=== PATIENT | male | born 1990 | race Caucasian/White ===

== ENCOUNTER 2017-09-16 19:02 | Emergency (ER) | payer MEDICAID ==
--- NOTE | 2017-09-16 19:10 | EDPHY ---
H & P - Personal History Tetanus Vaccine Date: < 10 years - Medical/Surgical History Hx Asthma: No Hx Chronic Respiratory Disease: No Hx Diabetes: No Hx Cardiac Disease: No Hx Renal Disease: No Hx Cirrhosis: No Hx Alcoholism: No Hx HIV/AIDS: No Hx Splenectomy or Spleen Trauma: No Other PMH: Endoscope 2012 - Social History Smoking Status: Current some day smoker Time Seen by Provider: 09/16/17 19:05 HPI/ROS: CHIEF COMPLAINT: Heroin use HISTORY OF PRESENT ILLNESS: 27-year-old male was a "Stat Team Alert" intra Hospital. Hospital in the ER staff responded to reports of a male on the floor of the bathroom of the hospital who admitted to using IV heroin use. He is in the hospital visiting his girlfriend. He admits to IV heroin use. He is not receive Narcan before arrival to the emergency department in a wheelchair from the hospital. He denies suicidal or homicidal ideation. Denies alcohol use. Pulse oxygenation of 68% on room air upon arrival. REVIEW OF SYSTEMS: A ten point review of systems was performed and is negative with the exception of the items mentioned in the HPI PAST MEDICAL & SURGICAL HISTORY: History of heroin use SOCIAL HISTORY:History of heroin use needle found at side PHYSICAL EXAM (Prior to examination, patient consented to physical exam, hands were washed and my usual and customary physical exam procedures followed) 1) GENERAL: Well-developed, well-nourished, alert and oriented. Appears to be in no acute distress. Speaking full sentences 2) HEAD: Normocephalic, atraumatic 3) HEENT: Pupils equal, round, reactive to light bilaterally. Sclera anicteric. 4) NECK: Full range of motion, no meningeal signs. 5) LUNGS: Clear auscultation bilaterally, no wheezes, no rhonchi, no retractions. 6) HEART: Regular rate and rhythm, no murmur, no heave, no gallop. 7) ABDOMEN: No guarding, no rebound, no focal tenderness, 8) MUSCULOSKELETAL: Moving all extremities, no focal areas of tenderness, no obvious trauma. No peripheral edema or discoloration. 9) BACK: No CVA tenderness, no midline vertebral tenderness, no fluctuance, no step-off, no obvious trauma, no visual or palpable abnormality. 10) SKIN: No rash, no petechiae. 11) Psychiatric: Patient is oriented X 3, there is no agitation. DIFFERENTIAL DIAGNOSIS: In no particular include but limited to polysubstance abuse, heroin overdose, pulmonary edema, pneumothorax (Chaparro Fisher) Constitutional: Initial Vital Signs Temperature (C) 36.9 C 09/16/17 19:07 Heart Rate 125 H 09/16/17 19:07 Respiratory Rate 20 09/16/17 19:07 Blood Pressure 162/113 H 09/16/17 19:07 O2 Sat (%) 68 L 09/16/17 19:07 O2 Delivery Mode Room Air O2 (L/minute) 2 Allergies/Adverse Reactions: amoxicillin [Amoxicillin] Allergy (Verified 09/16/17 19:07) Hives erythromycin lactobionate [From Erythrocin] Allergy (Verified 09/16/17 19:07) Hives Home Medications: Medication Instructions Recorded NK [No Known Home Meds] 09/16/17 Medical Decision Making - Diagnostics Imaging Results: Imaging Impressions Chest X-Ray 09/16/17 19:10 Impression: Negative frontal chest radiograph. Images reviewed myself (Chaparro Fisher) ED Course/Re-evaluation: 7:09 p.m.: Discussed case with secondary supervising physician Dr. Roth in the ER after evaluating the patient 8:02 p.m.: Re-evaluation, awake alert oriented person place time events. Will continue to observe in the ER for period of time. 8:20 p.m.: Re-evaluation, awake alert oriented person place time events, maintaining saturations of 96-98% on room air, breathing comfortably. 9 p.m.: Re-evaluation, he is been consistently maintaining saturations of 96-98 % on room air, breathing comfortably, no signs of respiratory distress. Think the patient can be discharged. He has not been given Narcan while in the emergency department or pre emergency department. Recommend cessation from heroin use. Have offered sobriety resources including addiction recovery Center which he declines. (Chaparro Fisher) I did not see this patient while he was in the emergency department. However his care was discussed with the PA while the patient was in the department. I agree with treatment plan and management. I am the secondary supervising physician (Evelio Roth) - Data Points Laboratory Results: Laboratory Results 09/16/17 19:10 09/16/17 19:10 09/16/17 09/16/17 09/16/17 19:10 19:10 19:10 WBC REJ RBC TNP Hgb TNP Hct TNP MCV TNP MCH TNP MCHC TNP RDW TNP Plt Count TNP MPV TNP Neut % (Auto) TNP Lymph % (Auto) TNP [place] % (Auto) TNP Eos % (Auto) TNP Baso % (Auto) TNP Nucleat RBC Rel Count TNP Absolute Neuts (auto) TNP Absolute Lymphs (auto) TNP Absolute Monos (auto) TNP Absolute Eos (auto) TNP Absolute Basos (auto) TNP Absolute Nucleated RBC TNP Immature Gran % TNP Immature Gran # TNP Sodium 142 mEq/L mEq/L (134-144) Potassium 3.6 mEq/L mEq/L (3.5-5.2) Chloride 99 mEq/L mEq/L (97-110) Carbon Dioxide 27 mEq/l mEq/l (22-31) Anion Gap 16 mEq/L mEq/L (8-16) BUN 9 mg/dL mg/dL (7-23) Creatinine 1.0 mg/dL mg/dL (0.7-1.3) Estimated GFR > 60 Glucose 206 mg/dL H mg/dL (70-100) Calcium 9.2 mg/dL mg/dL (8.5-10.4) Specimen Hemolysis Cancelled Ethyl Alcohol Cancelled < 10 mg/dL mg/dL (0-10) Departure - Departure Disposition: Home, Routine, Self-Care Clinical Impression: Heroin use Condition: Good Instructions: Narcotic Abuse (ED) Additional Instructions: Please consider long-term sobriety from heroin or other opiates. Referrals: [facility] [Outside] - As per Instructions
[2017-09-16 19:42] LABS: ANION GAP 16 mEq/L (8-16); CALCIUM 9.2 mg/dL (8.5-10.4); CARBON DIOXIDE 27 mEq/l (22-31); CHLORIDE 99 mEq/L (97-110); ETHANOL SERUM < 10 mg/dL (0-10); GLOMERULAR FILTRATION RATE > 60; GLUCOSE 206 mg/dL (70-100); POTASSIUM 3.6 mEq/L (3.5-5.2); SODIUM 142 mEq/L (134-144)
[2017-09-16 20:37] VITALS: RESP 16
[2017-09-16 21:17] VITALS: BP 121/69; PULSE 65; TEMP 97.9; O2SAT 97
== END 2017-09-16 21:17 | disposition home or self-care (01) ==
DX: F11.20 Opioid dependence, uncomplicated (principal); F17.200 Nicotine dependence, unspecified, uncomplicated
CPT/HCPCS: G0480

== ENCOUNTER 2018-01-02 08:47 | Inpatient (IN) | payer MEDICAID ==
[2018-01-02] MEDS ORDERED: NS 1,000 ML IV ONE ×2 (08:48→08:56)
[2018-01-02] MEDS ORDERED: ETOMIDATE 40 MG/20 ML INJ IVP ONE (08:52)
[2018-01-02] MEDS ORDERED: SUCCINYLCHOLINE CHLORIDE 200 MG/10 ML VIAL IVP ONE (08:53)
[2018-01-02] MEDS ORDERED: PROPOFOL/EMULSION 1,000 MG/100 ML BOTTLE IV ONE (08:54)
[2018-01-02] MEDS ORDERED: PROPOFOL/EMULSION 100 ML IV SCH ×2 (08:57→09:00)
--- NOTE | 2018-01-02 08:59 | CPEKG ---
Heart Rate: 103 RR Interval: 583 P-R Interval: 120 QRSD Interval: 80 QT Interval: 356 QTC Interval: 466 P Doyle: 70 QRS Doyle: 50 T Wave Doyle: 74 EKG Severity - OTHERWISE NORMAL ECG - EKG Impression: SINUS TACHYCARDIA Electronically Signed By: Evelio Roth 02-Jan-2018 16:02:45
[2018-01-02] MEDS ORDERED: POTASSIUM Cl (KCl) 20 MEQ in 1/2 NS 1,000 ML IV SCH (09:00)
[2018-01-02] MEDS ORDERED: D50W 25 GM/50 ML SYR IVP ONE ×4 (09:00→09:02)
--- NOTE | 2018-01-02 09:05 | EDPHY ---
H & P Time Seen by Provider: 01/02/18 08:55 HPI/ROS: Chief complaint. Unresponsive HPI. Patient is 27-year-old male here by EMS. Apparent history of substance abuse. Was agitated last night found unresponsive and not breathing by father this morning. Apparently the the patient recently purchased benzodiazepines on the Internet. He does have a long history of IV drug abuse specifically heroin. Unknown whether the patient has been sick or the last day circumstances. Patient had a nasal trumpet placed per EMS. They were unable to obtain blood for glucose testing. Given Narcan without affect. ROS--unable as the patient is unresponsive Past Medical/Surgical History: Other than history of IVDA per EMS no other known past medical history Social History: Unknown Smoking Status: Current some day smoker Physical Exam: General Appearance: Unresponsive male with Ambu bag in place. Tachycardia at 133. Stable blood pressure Eyes: Pupils are dilated and minimally responsive. They are equal.. ENT, Mouth: Mucous membranes are moist. Respiratory: Good bilateral breath sounds with Ambu bag Cardiovascular: Regular rate and rhythm tachycardia Gastrointestinal: Abdomen is soft and without evidence of trauma Neurological: Unresponsive to verbal stimuli. Really no response to painful stimuli. GCS 3 Skin: Extensive track kasper on the left forearm Musculoskeletal: Neck is supple Extremities does not move extremities Psychiatric: Unresponsive Constitutional: Initial Vital Signs Temperature (C) 37 C 01/02/18 09:24 Heart Rate 120 H 01/02/18 09:24 Respiratory Rate 30 H 01/02/18 09:24 Blood Pressure 150/77 H 01/02/18 09:24 O2 Sat (%) 98 01/02/18 09:24 Allergies/Adverse Reactions: amoxicillin [Amoxicillin] Allergy (Verified 09/16/17 19:07) Hives erythromycin lactobionate [From Erythrocin] Allergy (Verified 09/16/17 19:07) Hives Home Medications: Medication Instructions Recorded NK [No Known Home Meds] 09/16/17 Medical Decision Making - Diagnostics EKG Interpretation: EKG interpreted by me shows sinus tachycardia normal interval and axis. QRS is normal there is no significant ST elevation or depression. No arrhythmia. The rate is 103 Imaging Results: Imaging Impressions Chest X-Ray 01/02/18 08:54 Impression: 1. Satisfactory positioning of new endotracheal tube. 2. No discrete airspace disease. Head CT 01/02/18 08:55 Impression: Normal brain. No intracranial hemorrhage or mass. Findings discussed with Emergency Department physician, KAMALJIT ANGUIANO at 01/02 9:19. Post intubation chest x-ray shows the tube to be about 4 cm above the cas. There is no evidence for pneumonia Noncontrast head CT is normal ; reviewed by me and discussed with Dr. Cunningham Procedures: IV access is obtained. 2 IVs are started I-STAT shows blood sugar to be 33 and potassium less than 2 Patient is given D50 W intravenously. Patient started on potassium IV supplementation. traffic monitor specialist Patient's oxygenation with bagging is adequate but the airway is unprotected. Indication for endotracheal intubation is unprotected airway and unresponsive patient Patient is assessed for intubation. He is given 20 mg of etomidate intravenously followed by 125 mg of succinylcholine. The airway is suction. Patient is position. Good visualization of the epiglottis. Patient is intubated 1st pass with 7.5 endotracheal tube using the glide scope. Color is checked immediately on CO2 detector and shows good color change. Breath sounds are symmetrical. Steam in the endotracheal tube. Good O2 saturation following intubation. Propofol drip for continued sedation ED Course/Re-evaluation: Reece catheter inserted. I consulted and discussed the case with Dr. Rivera, hospitalist, who agrees to the admission Re-evaluation 9:15 a.m. On return from CT. Patient is stable. Mental and neurologic status has not changed. Reece catheter is being placed. NG tube is being placed. Head of bed to 30 degrees. At 9:15 a.m. Still no family is here. 9 30 a.m. father is here. The dad and I discussed status and treatment plan. 9:40 a.m. mother is here. The mom and I discussed status and treatment plan. Dr. Braswell is here with the patient 10:00 a.m. Repeat i-STAT shows more reasonable chemistries. His potassium is adequate and so we will discontinue potassium replacement. Blood sugar is also about 200. This is after D50 W I consulted discussed the case with Dr. Braswell who is here with the patient. He agrees to the admission Differential Diagnosis: Likely this is benzodiazepine overdose. He was treated for opioid overdose with Narcan without effect. I considered intracranial injury as well but has a normal head CT. Acute respiratory failure and unprotected airway. This required intubation. Critical Care Time: Critical care time exclusive of procedures 50 min - Data Points Laboratory Results: Laboratory Results 01/02/18 08:52 01/02/18 08:52 01/02/18 01/02/18 01/02/18 08:57 08:52 08:52 WBC RBC Hgb POC Hgb TNP Hct POC Hct < 15 % L* % (40-51) MCV MCH MCHC RDW Plt Count MPV Neut % (Auto) Lymph % (Auto) [place] % (Auto) Eos % (Auto) Baso % (Auto) Nucleat RBC Rel Count Absolute Neuts (auto) Absolute Lymphs (auto) Absolute Monos (auto) Absolute Eos (auto) Absolute Basos (auto) Absolute Nucleated RBC Immature Gran % Immature Gran # Turbidity TNP POC Sodium 158 mEq/L H mEq/L (135-145) Sodium TNP POC Potassium < 2.0 mEq/L L* mEq/L (3.3-5.0) Potassium TNP POC Chloride 131 mEq/L H mEq/L (97-110) Chloride TNP Carbon Dioxide TNP Anion Gap TNP POC BUN < 3 mg/dL L mg/dL (7-23) BUN TNP Creatinine TNP POC Creatinine < 0.2 mg/dL L mg/dL (0.7-1.3) Estimated GFR TNP Glucose TNP POC Glucose 33 mg/dL L* mg/dL (70-100) Calcium TNP Icterus Index TNP Creatine Kinase TNP Specimen Hemolysis REJ REJ Salicylates TNP Acetaminophen TNP Ethyl Alcohol TNP 01/02/18 08:52 WBC REJ RBC REJ Hgb REJ POC Hgb Hct REJ POC Hct MCV REJ MCH REJ MCHC REJ RDW REJ Plt Count REJ MPV REJ Neut % (Auto) REJ Lymph % (Auto) REJ [place] % (Auto) REJ Eos % (Auto) REJ Baso % (Auto) REJ Nucleat RBC Rel Count REJ Absolute Neuts (auto) REJ Absolute Lymphs (auto) REJ Absolute Monos (auto) REJ Absolute Eos (auto) REJ Absolute Basos (auto) REJ Absolute Nucleated RBC REJ Immature Gran % REJ Immature Gran # REJ Turbidity POC Sodium Sodium POC Potassium Potassium POC Chloride Chloride Carbon Dioxide Anion Gap POC BUN BUN Creatinine POC Creatinine Estimated GFR Glucose POC Glucose Calcium Icterus Index Creatine Kinase Specimen Hemolysis Salicylates Acetaminophen Ethyl Alcohol Medications Given: Heparin Sodium (Porcine) (Heparin Sc Injection) 5,000 unit SC Q8 BARBIE Stop: 07/01/18 13:59 Last Admin: 01/02/18 13:29 Dose: 5,000 unit Propofol (Diprivan 10 Mg/Ml (Premix)) 100 mls @ 0 mls/hr IV CONT BARBIE; Titrate PRN Reason: Protocol Stop: 07/01/18 08:59 Last Admin: 01/02/18 13:25 Dose: 100 mls Sodium Chloride (Ns) 1,000 mls @ 150 mls/hr IV CONT BARBIE Stop: 07/01/18 11:59 Last Admin: 01/02/18 13:25 Dose: 1,000 mls Discontinued Medications Dextrose (Dextrose 50% Syringe) 25 gm IVP EDNOW ONE Stop: 01/02/18 09:01 Last Admin: 01/02/18 13:23 Dose: Not Given Dextrose (Dextrose 50% Syringe) 25 gm IVP EDNOW ONE Stop: 01/02/18 09:02 Last Admin: 01/02/18 13:23 Dose: Not Given Sodium Chloride (Ns) 1,000 mls @ 0 mls/hr IV ONCE ONE PRN Reason: Wide Open Stop: 01/02/18 08:57 Last Admin: 01/02/18 13:23 Dose: Not Given Potassium Chloride 10 meq/ (Sodium Chloride) 100 mls @ 100 mls/hr IV Q1H BARBIE Stop: 01/02/18 12:29 Last Admin: 01/02/18 13:24 Dose: Not Given Point of Care Test Results: 01/02/18 08:57 POC Sodium 158 H POC Potassium < 2.0 L* POC Chloride 131 H POC BUN < 3 L POC Creatinine < 0.2 L POC Glucose 33 L* Departure - Departure Disposition: [facility] Inpatient Acute Clinical Impression: Respiratory failure requiring intubation Condition: Fair
[2018-01-02] MEDS ORDERED: D5W 1/2 NS 1,000 ML IV SCH (10:00)
[2018-01-02 10:04] LABS: PLATELET COUNT 196 10^3/uL (150-400)
--- NOTE | 2018-01-02 10:07 | PDGENHP ---
History and Physical - Chief Complaint Acute unresponsiveness - History of Present Illness 27-year-old male presenting with acute unresponsiveness as noted by his father on the morning of this presentation. Per the patient's father, the patient was extremely agitated, visibly intoxicated on medications, on the evening prior to this presentation. The onset of those symptoms were approximately 6:00 p.m. On 01/01. On the morning of 01/02, the patient's father found him unresponsive on the couch, with no visible respirations, and EMS was called. EMS arrived on the scene, successfully placed nasal trumpet, an I-STAT demonstrated glucose level of around 30. An amp of D50 was administered as well as Narcan, with no visible response. The patient was intubated in our emergency department. It should be noted that the patient was not overtly cyanotic and the intubation was without complications. Per discussion with patient's father, the patient had recently been initiated on gabapentin and had recently obtained a type of benzodiazepine on line comma provided to our pharmacy. Per discussion with patient's mother, the patient had reportedly successfully rehabbed off of heroin approximately 3 months ago and had been doing well on methadone maintenance therapy. The mother reports that the patient it seems like his normal self recently and she had felt like he was doing well off of illicit drugs. History Information - Allergies/Home Medication List Allergies/Adverse Reactions: amoxicillin [Amoxicillin] Allergy (Verified 09/16/17 19:07) Hives erythromycin lactobionate [From Erythrocin] Allergy (Verified 09/16/17 19:07) Hives Home Medications: NK [No Known Home Meds] 09/16/17 [Last Taken Unknown] I have personally reviewed and updated: family history, medical history, social history, surgical history - Past Medical History Additional medical history: Drug addiction, previously heroin, currently benzodiazepines. Nondescript digestive symptoms beginning at age 17 after C diff infection. Previous history of heroin overdose, most recently at this hospital in September of 2017 - Surgical History Reports: no pertinent surgical hx - Family History Additional family history: Patient's brother with polysubstance addiction, currently status post rehab and reportedly off of drugs. Patient's father had an opiate addiction which was reportedly successfully rehab 4 years ago - Social History Smoking Status: Current some day smoker Alcohol Use: None Drug Use: Heroin, Other (Benzodiazepine) Additional social history: The patient lives with his father, he has a history of IV drug use with heroin, currently unclear what methods he uses 4 benzodiazepine abuse Review of Systems Review of Systems: ROS: 10pt was reviewed & negative except for what was stated in HPI & below Constitutional: Reports: other (Unresponsive) Respiratory: Reports: other (Not visibly breathing) Physical Exam Physical Exam: Temp Pulse Resp BP Pulse Ox 37 C 120 H 30 H 150/77 H 98 01/02/18 09:24 01/02/18 09:24 01/02/18 09:24 01/02/18 09:24 01/02/18 09:24 Constitutional: no apparent distress, not in pain, unkempt, No uncomfortable Eyes: other (Fixed pupils, sluggish reaction, central) Ears, Nose, Mouth, Throat: other (ET tube in place) Cardiovascular: regular rate and rhythym, no murmur, rub, or gallop, No edema Respiratory: no respiratory distress, no rales or rhonchi, clear to auscultation Gastrointestinal: normoactive bowel sounds, soft, non-tender abdomen, no palpable masses, other (OG tube in place), No distension Genitourinary: steinberg in urethra, other (No visible lesions) Skin: other (Longitudinal cut kasper left upper extremity with minimal surrounding erythema, some blanching erythema over the patient's right distal upper extremity and hand, abrasion over his knee, abrasion over his toe) Neurologic: other (Alert awake oriented times 0, GCS of 3 without any response to pain, no spontaneous movements, brisk bilateral patellar reflexes) Psychiatric: encephalopathic (With no responsiveness whatsoever) Lab Data & Imaging Review 01/02/18 08:52 01/02/18 08:52 WBC REJ 01/02/18 08:52 RBC REJ 01/02/18 08:52 Hgb REJ 01/02/18 08:52 POC Hgb TNP 01/02/18 08:57 Hct REJ 01/02/18 08:52 POC Hct < 15 % (40-51) L* 01/02/18 08:57 MCV REJ 01/02/18 08:52 MCH REJ 01/02/18 08:52 MCHC REJ 01/02/18 08:52 RDW REJ 01/02/18 08:52 Plt Count REJ 01/02/18 08:52 MPV REJ 01/02/18 08:52 Neut % (Auto) REJ 01/02/18 08:52 Lymph % (Auto) REJ 01/02/18 08:52 [place] % (Auto) REJ 01/02/18 08:52 Eos % (Auto) REJ 01/02/18 08:52 Baso % (Auto) REJ 01/02/18 08:52 Nucleat RBC Rel Count REJ 01/02/18 08:52 Absolute Neuts (auto) REJ 01/02/18 08:52 Absolute Lymphs (auto) REJ 01/02/18 08:52 Absolute Monos (auto) REJ 01/02/18 08:52 Absolute Eos (auto) REJ 01/02/18 08:52 Absolute Basos (auto) REJ 01/02/18 08:52 Absolute Nucleated RBC REJ 01/02/18 08:52 Immature Gran % REJ 01/02/18 08:52 Immature Gran # REJ 01/02/18 08:52 POC Sodium 158 mEq/L (135-145) H 01/02/18 08:57 POC Potassium < 2.0 mEq/L (3.3-5.0) L* 01/02/18 08:57 POC Chloride 131 mEq/L (97-110) H 01/02/18 08:57 POC BUN < 3 mg/dL (7-23) L 01/02/18 08:57 POC Creatinine < 0.2 mg/dL (0.7-1.3) L 01/02/18 08:57 POC Glucose 33 mg/dL (70-100) L* 01/02/18 08:57 Urine Color YELLOW 01/02/18 09:31 Urine Appearance CLEAR 01/02/18 09:31 Urine pH 6.0 (5.0-7.5) 01/02/18 09:31 Ur Specific [place] 1.015 (1.002-1.030) 01/02/18 09:31 Urine Protein NEGATIVE (NEGATIVE) 01/02/18 09:31 Urine Ketones NEGATIVE (NEGATIVE) 01/02/18 09:31 Urine Blood NEGATIVE (NEGATIVE) 01/02/18 09:31 Urine Nitrate NEGATIVE (NEGATIVE) 01/02/18 09:31 Urine Bilirubin NEGATIVE (NEGATIVE) 01/02/18 09:31 Urine Urobilinogen NEGATIVE EU (0.2-1.0) 01/02/18 09:31 Ur Leukocyte Esterase NEGATIVE (NEGATIVE) 01/02/18 09:31 Urine RBC 1-3 /hpf (0-3) 01/02/18 09:31 Urine WBC 1-3 /hpf (0-3) 01/02/18 09:31 Ur Epithelial Cells NONE SEEN /lpf (NONE-1+) 01/02/18 09:31 Urine Mucus TRACE /lpf (NONE-1+) 01/02/18 09:31 Urine Glucose 3+ (NEGATIVE) H 01/02/18 09:31 Urine Opiates Screen NEGATIVE (NEGATIVE) 01/02/18 09:31 Urine Barbiturates NEGATIVE (NEGATIVE) 01/02/18 09:31 Ur Phencyclidine Scrn NEGATIVE (NEGATIVE) 01/02/18 09:31 Ur Amphetamine Screen NEGATIVE (NEGATIVE) 01/02/18 09:31 U Benzodiazepines Scrn NON-NEGATIVE (NEGATIVE) H 01/02/18 09:31 Urine Cocaine Screen NEGATIVE (NEGATIVE) 01/02/18 09:31 U Marijuana (THC) Screen NEGATIVE (NEGATIVE) 01/02/18 09:31 Visualized and Interpreted Chest x-ray results: Yes Chest X-Ray results: no infiltrate, other (Dilated stomach) Visualized and Interpreted EKG results: Yes EKG Interpretation: Positive for: other (Sinus tachycardia without any ST depressions or elevations) Assessment & Plan Assessment: 27-year-old male presenting with coma after suspected benzodiazepine overdose Plan: 1. Coma. Acute, new problem this provider, most likely secondary to benzodiazepine overdose with resultant GCS of 3 -required intubation for airway protection -neuro checks ordered -it seems unlikely that the patient has experienced acute neck trauma but since this cannot be confirmed, and the patient's neurologic exam demonstrates no responsiveness, will place him in a hard collar and monitor for any signs of neurologic recovery to determine whether a neck CT is indicated, head CT has ruled out intracranial hemorrhage -original labs were an I-STAT from the field which were reportedly drawn from a line recently receiving IV flush, and they may not be accurate -getting repeat labs in the emergency department right now -if unable to obtain labs given patient's poor venous access, then will get stat PICC line placement for labs as well as ongoing IV medications -plan to provide very minimal propofol sedation as the patient is able to sink with vent but we will be able to monitor for any resumption of his neurologic processes if the patient has not experienced dense anoxic brain injury -discussed with the patient's father and mother, if the patient does not demonstrate any resumption of movements or neurologic status, then we should perform MRI and get Neurology consult for possible anoxic brain injury which could be terminal 2. Acute respiratory failure. Patient unable to protect airway in the setting of benzodiazepine overdose and possible resultant anoxic brain injury -intubated in the emergency department, continue on current vent settings -get pulmonary consultation in ICU 3. Benzodiazepine abuse and overdose. Acute, this is the suspected toxic agent , getting tox screen -will hold on using reversal agent, given the possibility of inducing seizure in the setting of the patient likely using this benzodiazepine on a regular basis -monitor for signs of recovery 4. History of continuous opiate dependency and heroin abuse. Patient previously on methadone, unclear whether he is currently taking it or whether this has been substituted with gabapentin -get pharmacy medication reconciliation to further guide treatment 5. Acute toxic encephalopathy. Evidenced by global brain dysfunction characterized as agitation and visible intoxication on the evening prior to this presentation, as reported by the patient's father who directly witnessed this, and this was an acute change from the patient's baseline mental status, most likely secondary to benzodiazepine abuse and intoxication -this was most likely the precipitating cause of the patient's ultimate coma, with probable overdose of benzodiazepine Diet. NPO with OGT Prophylaxis. High risk patient, currently heparin subcu, SCDs if needed, Pepcid IV Code. Full Disposition. Anticipated discharge uncertain, patient is critically ill requiring intubation and close neurologic monitoring in the intensive care unit he is high risk for worsening morbidity and/or mortality secondary to the issues above, specifically coma with respiratory failure and benzodiazepine overdose. 60 min of critical care time were spent specifically addressing these issues with this patient, with his family, coordinating with Dr. Roth and the patient's nursing staff.
[2018-01-02] MEDS ORDERED: SUCCINYLCHOLINE CHLORIDE 200 MG/10 ML SYR IVP ONE (10:30)
[2018-01-02] MEDS ORDERED: ETOMIDATE 40 MG/20 ML INJ ONE (10:30)
[2018-01-02] MEDS ORDERED: NS 1,000 ML IV SCH (12:00)
--- NOTE | 2018-01-02 12:22 | PDMN ---
Medical Necessity Medical necessity: Pt meets IP criteria per MD; anticipated dc uncertain, pt is critically ill requiring intubation & close neurologic monitoring in the ICU; pt at high risk for worsening morbidity &/or mortality secondary to coma w/ respiratory failure & possible anoxic brain injury r/t suspected benzodiazepine overdose; hx drug addiction; per H&P & order 12/05/17
[2018-01-02] MEDS: POTASSIUM Cl (KCl) 10 MEQ in NS 100 ML IV SCH (13:24)
[2018-01-02] MEDS: HEPARIN 5,000 UNIT/0.5 ML INJ SC SCH ×2 (13:29→20:56)
--- NOTE | 2018-01-02 15:44 | ASMTCMCOM ---
CM Note CM Note Notes: Pt presented to the ED via EMS from his father's home, where his father, Evelio ([phone]) found him unresponsive. Per Evelio, patient had ingested a substance (Clonazolam) the patient ordered online and was incoherent and falling repeatedly last night. Pt's mother, Chetna ([phone]) later arrived to the ED. Evelio and Chetna are . Spoke with Chetna and Eveilo regarding patient's current and past substance abuse. Pt has a history of heroin abuse; pt was seen in the ED after he was found unresponsive after injecting heroin in a bathroom at [facility] (pt was at [facility] visiting his girlfriend, Angel Luis Jiang (goes by "Sherrie"), who was a patient in the ICU due to an overdose). Patient then was trying to manage his addiction with Methadone but quit Methadone about 3 months ago. Per parents, pt has been clean/sober from opiates,etc. for the past 3 months. Pt and Sherrie live with Evelio in [place]. Evelio and Chetna have both spoken with Sherrie this morning and they have decided they do not want Sherrie to be able to come to the hospital and visit the patient; they said they told Sherrie this and she understands. Of note, pt's younger brother, Krishan, was admitted to the ICU in Fall 2016 for an overdose related to possible receiving Fentanyl substance from Yony and Sherrie. Krishan is currently living with Chetna and she states he has made a full recovery and is sober and doing well. Spoke with Chetna and Evelio waiting and seeing how patient recovers, but if he recovers well and is interested in entering rehab treatment, then CM can further discuss the options. Chetna and Evelio are familiar with [facility] and their IOP and also specifically inquired about patient getting into [facility]. Evelio says the reason why the patient has never agreed to go to rehab is because he doesn't want to be away from [facility]. We discussed IOP options, including getting patient set up with [facility] (spoke w/ Adonay at [facility] and pt is not an open client w/them) and their Withdrawal Mgmt IOP. But again, we reiterated that we'll have to see how pt recovers and if he is interested in getting treatment. Pt's PCP is Mee Rodgers at [facility]; last visit was yesterday when he was seen for hair loss. Spoke with [facility] and they said pt had an appt scheduled for 01/05/18 but we decided to cancel the appt. Chetna and Evelio had mentioned that his PCP recently prescribed him Xanax but [facility] said that patient has never received any prescriptions from them. Pt's previous PCP was Dr. Butler until he switched to [facility] in Jul 2017 due to getting Medicaid. Anticipate scheduling a family meeting. This CM offered to contact [employer] steam conditioner operator for additional support,etc, and both Evelio and Chetna declined. Other Exact DC need unknown at this time, CM to follow. Date Signed: 01/02/2018 03:44 PM Electronically Signed By:Shyanne Maharaj RN
--- NOTE | 2018-01-02 16:49 | GHP ---
[f rep st] HISTORY AND PHYSICAL DATE OF ADMISSION: 01/02/2018 PULMONARY/CRITICAL CARE CONSULTATION REASON FOR REFERRAL: Evaluation and management of acute respiratory failure. HISTORY: The patient is a 27-year-old male with a history of heroin use, which was transitioned to m ethadone recently. He apparently obtained a medication, probably a benzodiazepine, on line recently. Apparently, last night he was visibly agitated/intoxicated, then this morning his parents found him unresponsive with no visible respirations. EMS was called. The patient's glucose was about 30. He had no response to D50 and Narcan. He was started on propofol due to some agitation, but I stopped that shortly after first seeing him. He was somnolent, arousable, but not responding appropriately t o questions. PAST MEDICAL HISTORY: Heroin addiction. MEDICATIONS: At the time of admission, no known medications. ALLERGIES: Amoxicillin, erythromycin. SOCIAL HISTORY: The patient lives with his parents. History of heroin abuse. He smokes daily. FAMILY HISTORY: Positive for a brother with polysubstance abuse. REVIEW OF SYSTEMS: A 10-point Review of Systems is unobtainable. PHYSICAL EXAMINATION: GENERAL: The patient is intubated. He is somnolent, but does arouse, and fol lows some simple commands inconsistently. VITAL SIGNS: Blood pressure is 94/49 with a heart rate of 70. He is afebrile. Oxygen saturations are 100%. HEENT: Normocephalic and atraumatic. No icteru s. NECK: No JVD. C-collar is in place. Trachea is midline. No adenopathy. CHEST: Clear to ausc ultation. CARDIAC: Regular rate and rhythm without murmur. ABDOMEN: Soft, nontender. Bowel sound s are present. EXTREMITIES: No clubbing, cyanosis, or edema. NEURO: The patient is minimally resp onsive and not reliably following commands. He is able to move all extremities when agitated from no xious stimuli. LABORATORY DATA: White blood count is 10.9 with a hemoglobin of 13.6, sodium level is 142, potassium is 5.2, creatinine is 1.1, glucose is 202, up from 33 at admission. An arterial blood gas shows a p H of 7.47 with a pO2 of 276, a CO2 of 29, a bicarbonate of 22 on 60% oxygen, with an IMV rate 16 and a tidal volume of 600. A chest x-ray shows no infiltrates and an appropriately placed endotracheal tube. Images reviewed by me. ASSESSMENT: 1. Acute respiratory failure. This likely is due to over-sedation from a respiratory depressant med ication, probably benzodiazepine. The patient is starting to wake up, but still has apneic episodes while on CPAP, so is not yet ready to control his airway enough to be extubated. 2. Hypoglycemia. The patient had hypoglycemia at the time of admission. The cause for this is unkn own. His glucose was corrected on the last check after receiving D50. RECOMMENDATIONS: Recheck glucose. I will also check LFTs, as acute hepatic dysfunction could cause hypoglycemia. Continue off sedation with the patient on IMV at a reduced rate. Once he is more alert and able to p rotect his airway, he will be extubated. /[id number]/MODL
[2018-01-02] MEDS: FAMOTIDINE 20 MG/NACL 50 ML IV SCH (20:54)
[2018-01-02] MEDS: D5W NS 1,000 ML IV SCH (20:55)
[2018-01-02] MEDS ORDERED: ACETAMINOPHEN 650 MG/20.3 ML UDCUP TUBE PRN (21:53)
[2018-01-02] MEDS ORDERED: ACETAMINOPHEN 650 MG SUPP PR PRN (21:54)
--- NOTE | 2018-01-02 21:57 | HOSPPROG ---
Hospitalist Progress Note Assessment/Plan: New fevers this evening with productive sputum. A&P: 1. Aspiration PNA vs. pneumonitis in setting of overdose -CXR with min LLL infiltration. Check sputum, blood cultures. Will cover this evening with abx. CTX, Flagyl (PCN-allergy) 2. Fever: plan as above Objective: Vital Signs Temp Pulse Resp BP Pulse Ox 38.2 C 95 14 120/73 100 01/02/18 21:00 01/02/18 21:00 01/02/18 21:00 01/02/18 21:00 01/02/18 21:00 Laboratory Results 01/02/18 09:57 01/02/18 16:00 01/01/18 01/02/18 01/03/18 05:59 05:59 05:59 Intake Total 994 Output Total 700 Balance 294 ICD10 Worksheet Patient Problems: Problems Problem Status Onset Respiratory failure requiring intubation Acute
[2018-01-03] MEDS: D5W NS 1,000 ML IV SCH (05:56)
[2018-01-03 06:09] LABS: PLATELET COUNT 174 10^3/uL (150-400)
[2018-01-03 06:18] LABS: INR 1.06 (0.83-1.16)
[2018-01-03 06:21] LABS: CREATINE KINASE 288 IU/L (0-224)
[2018-01-03] MEDS ORDERED: ONDANSETRON 4 MG/2 ML VIAL IVP PRN (06:24)
[2018-01-03] MEDS ORDERED: ONDANSETRON DISINTEGRATING 4 MG TAB PO PRN (06:24)
[2018-01-03] MEDS: HEPARIN 5,000 UNIT/0.5 ML INJ SC SCH ×2 (06:26→13:06)
[2018-01-03] MEDS ORDERED: diphenhydrAMINE 25 MG CAP PO PRN (10:09)
[2018-01-03] MEDS ORDERED: CEPACOL LOZENGE PO PRN (10:09)
[2018-01-03] MEDS ORDERED: LIDOCAINE 2% VISCOUS 15 ML UDCUP PO PRN (10:09)
[2018-01-03 10:21] VITALS: BP 150/88
--- NOTE | 2018-01-03 10:58 | TRAUMAPN ---
Trauma Progress Note Assessment/Plan: PAD#1 Trauma Consult Asked to see patient to evaluate and clear c-spine by ICU Assessment: No tenderness to palpation, Full Range of motion, C-spine CT ( formal report pending ) does not show any acute abnormalities. Neck clear Plan: DC Cervical collar Objective: Vital Signs Temp Pulse Resp BP Pulse Ox 36.4 C 106 H 14 150/88 H 98 01/03/18 08:00 01/03/18 10:00 01/03/18 10:00 01/03/18 10:00 01/03/18 10:00 Microbiology 01/02/18 22:12 - Final Sputum, Induced/Suctioned Laboratory Results 01/03/18 05:55 01/03/18 05:55 01/02/18 01/03/18 01/04/18 05:59 05:59 05:59 Intake Total 2147 Output Total 1385 200 Balance 762 -200 PT 14.0 SEC (12.0-15.0) 01/03/18 05:55 INR 1.06 (0.83-1.16) 01/03/18 05:55 - C-Spine Clearance Cervical Spine Cleared: Yes Provider who Cleared Cervical Spine: Consuelo Time Cervical Spine was Cleared: 10:50 Physical Exam - Physical Exam Neck: non-tender, full range of motion, supple Time Spent w/Patient (minutes): 15
[2018-01-03 12:23] LABS: HEPATITIS B SURFACE ANTIGEN NEGATIVE (NEGATIVE)
[2018-01-03 12:29] LABS: HEPATITIS A ANTIBODY IGM (BCH) NEGATIVE (NEGATIVE); HEPATITIS B CORE AB IGM NEGATIVE (NEGATIVE)
[2018-01-03 12:40] LABS: HEPATITIS C ANTIBODY TOTAL NEGATIVE (NEGATIVE); HIV TYPE 1 AND 2 NEGATIVE (NEGATIVE)
[2018-01-03] MEDS: FAMOTIDINE 20 MG/NACL 50 ML IV SCH (13:06)
--- NOTE | 2018-01-03 14:29 | PDDCSUM ---
Discharge Summary Discharge Summary: DISCHARGE SUMMARY FOLLOW-UP ITEMS: Reassess anxiety management at [facility] appointment on Monday Reassess pneumonia resolution at [facility] Sputum culture pending at time discharge, blood cultures pending at time discharge DATE OF ADMISSION: 01/02/2018 DATE OF DISCHARGE: 01/03/2018 DISCHARGE DIAGNOSES: 1. Coma present on admission 2. Acute respiratory failure 3. Benzo abuse and unintentional overdose 4. History of opiate use disorder and dependency with heroin abuse 5. Acute toxic encephalopathy 6. Acute aspiration pneumonia present on admission 7. Acute demand ischemia CONSULTATIONS: Pulmonary Critical Care, social Work, trauma PROCEDURES / IMAGING: Chest x-ray demonstrating left lower lobe infiltrate, intubated in the emergency department, extubated in the ICU CHIEF COMPLAINT: Acute unresponsiveness SUBJECTIVE: Patient is feeling well at time discharge, he reports his cough is well managed , he has minimal anterior throat discomfort, he does not feel anxious or tremulous PHYSICAL EXAM ON DISCHARGE: Systolic blood pressure 120-140, heart rate 80-110, satting well on room air, afebrile, inspiratory crackles in the left base, otherwise no expiratory wheezes or reduced breath sounds, no tremulousness, no asterixis, alert awake oriented x3, cranial nerves 2-12 are intact and tested comma motor strength 5/5 bilateral upper and lower extremities, abdomen is soft nontender nondistended, heart rhythm is regular with regular rate LABS ON DISCHARGE: Sputum culture demonstrates 3+ Gram-positive cocci, 3+ Gram-negative rods creatinine 0.7, potassium 4.1, white blood count 29518, hemoglobin 12.9, CPK 290 , troponin 0.06 HOSPITAL COURSE BY PROBLEM: 1. Acute coma. Present on admission, evidenced by a GCS of 3 on presentation, persisted from the time of identification on the morning of presentation through early afternoon on the day of presentation then patient began demonstrating signs of neurologic recovery. The patient remained encephalopathic throughout the afternoon and evening of presentation, as his benzodiazepines wore off. He eventually was extubated overnight and he demonstrated remarkable complete neurologic recovery. A head CT was performed to ensure no intracranial hemorrhage, a neck CT was performed to demonstrate no fracture, and he was cleared from a trauma perspective. The cause of his initial coma was most likely benzodiazepine overdose with resultant toxic encephalopathy and then subsequent complete unresponsiveness to all stimuli, resulting in coma, by definition. 2. Acute respiratory failure. Patient was unable to protect his airway on presentation in the setting of benzodiazepine overdose and he was intubated in the emergency department. He required ongoing ventilation throughout the 1st day of hospitalization and was extubated after he began demonstrating signs of neurologic recovery. His oxygen requirements were weaned down to 2 L and then subsequently room air prior to discharge. 3. Acute toxic encephalopathy. The patient experienced benzodiazepine acute overdose and this resulted in initial coma with GCS of 3. After the benzodiazepines began wearing off in his system, the patient continued to experience global brain dysfunction characterized as agitation, poor direct ability, somnolence, outlined in the consultation note of Dr. Ian Gordon. This was most likely secondary to the acute toxic effects of benzodiazepines which, eventually, were metabolized and then the patient demonstrated full neurologic recovery. The patient had recently been utilizing benzodiazepines obtained on the Internet, and had not been continuously using them and was not at risk for benzodiazepine withdrawal. Consequently, the patient did not require any prescription for benzodiazepines at discharge, and I would highly recommend that the patient not be prescribed benzodiazepines for underlying mood disorder when he follows up with [facility]. The patient reports that in the past, he had been treated for underlying mood disorder with Klonopin and Xanax, and these prescriptions most likely led to his abuse and eventual dependency, prior to transitioning his addiction to heroin. 4. History of opiate use disorder with dependency and heroin abuse. The patient has a long history of drug dependency and addiction, likely beginning with benzodiazepines and then being complicated by heroin addiction which the patient reports has been in control for at least the last 2 and half months. The patient reports that he is not currently on any methadone therapy, although he has utilize methadone and Suboxone as tools in the past. He is adamant that he is currently clean from heroin and although he reports that he experiences ongoing opiate withdrawal symptoms, further clarification identifies that the patient is most likely not experiencing withdrawal symptoms, but rather components of underlying mood disorder which include insomnia, anxiety, mild autonomic dysregulation including some night sweats and transient tachycardia. I encouraged the patient to articulate the symptoms with his mental health provider so that they are able to help him fully, rather than generic leak wall find them as opiate withdrawal symptoms, which would imply and potentially be misinterpreted that the patient may have recently used heroin, which he vehemently denies. Our high school social science teacher met with the patient, operative resources , encouraged him to [facility], which the patient as scheduled. 5. Aspiration pneumonia. Present on admission, most likely secondary to aspiration while the patient was completely unresponsive and not protecting his airway, evidenced by chest x-ray with left lower lobe infiltrate, fever, tachycardia, leukocytosis. Sputum culture demonstrating 3+ Gram-positive cocci in 3+ Gram-negative rods, warranting combination therapy with ceftriaxone and Flagyl. The patient is symptomatically feeling better today, and he will be discharged home with cefpodoxime and Flagyl for 5 subsequent days. 6. Acute demand ischemia. Evidenced by troponin level 0.06 without any suspected myocardial infarction, most likely secondary to supply demand mismatch in the setting of unresponsiveness, respiratory failure, intubation, aspiration pneumonia. DISCHARGE MEDICATIONS: Please see official discharge medication reconciliation sheet in chart , cefpodoxime 200 mg twice daily x5 days, metronidazole 500 mg 3 times daily x5 days, as needed lozenges, as needed Tylenol, as needed Benadryl. DISCHARGE INSTRUCTIONS: Please [facility] with [facility] as [facility] this [facility], [facility] thereafter. Please maintain complete sobriety. TIME SPENT: Greater than 30 minutes were spent on direct patient care, as well as discharge planning and preparation. It was originally anticipated the patient would require greater than 48 hr inpatient care for reasonable medical necessity outlined in the H&P. The patient's condition stabilized and improved much more rapidly than originally anticipated, and on 01/03, the patient is requesting discharge home. Although I would recommend additional 24 hr of care to ensure that his pneumonia is adequately responding, the patient is adamant that he should be discharged today , and we will adhere to his request.
--- NOTE | 2018-01-03 15:20 | ASMTCMCOM ---
CM Note CM Note Notes: Met with patient to go over resources and determine if there is any passive suicidal ideation currently. Patient went over his hx and stated he has never been suicidal. He was hospitalized when he was 17 because school was being discussed and he threatened to take aspirin and kill himself if they did. Patient was hospitalized with [facility] for 3 days and was put on Prozac, which he only took for approx. 2 months. He was hospitalized again when he was 24 for detox with [facility]. He went to outpatient groups twice and then quit. Patient states he is a generally happy person and any depression he experiences is mostly related to withdrawal from drugs. Patient has an appointment with [facility] on Monday and they are going to assign him a therapist and a psychiatrist. Patient agrees it might be helpful to go on an antidepressant until he is completely through withdrawal and has managed to remain sober for 6 months or more. A folder of resources was given to patient and he is interested in medical withdrawal management with [facility]. ( they are working on getting their Medicaid approval). Discussed the importance of having professional support and not just using his girlfriend for managing sobriety. She also needs to have her own counselor and group support which patient understands. Met with patient's parents and discussed ways they can set limits in the home and stay firm with consequences. Patient's brother has been sober and living with his mother. Patient and his girlfriend are living with patient's father. Patient did identify the biggest issue in his life is finding purpose. Patient to be d/c'ed to home today. No further CM needs. Date Signed: 01/03/2018 03:19 PM Electronically Signed By:Sandy Orr LCSW
== END 2018-01-03 14:00 | disposition home or self-care (01) | DRG 208 ==
LOC: EDUNIT# → F2N 10:16
PROVIDERS: ADMIT Internal Medicine; ATTEND Internal Medicine
PROC: 5A1935Z Respiratory Ventilation, Less than 24 Consecutive Hours (ICD-10-PCS; principal; 2018-01-02)
PROC: 0BH17EZ Insertion of Endotracheal Airway into Trachea, Via Natural or Artificial Opening (ICD-10-PCS; principal; 2018-01-02)
DX: J96.00 Acute respiratory failure, unspecified whether with hypoxia or hypercapnia (principal); G92 Toxic encephalopathy; J69.0 Pneumonitis due to inhalation of food and vomit; I24.8 Other forms of acute ischemic heart disease; T42.4X1A Poisoning by benzodiazepines, accidental (unintentional), initial encounter; F13.10 Sedative, hypnotic or anxiolytic abuse, uncomplicated; R40.2432 Glasgow coma scale score 3-8, at arrival to emergency department; F11.21 Opioid dependence, in remission; Z72.0 Tobacco use
CPT/HCPCS: 80305; 82947-QW; 92610-GN; 96374; G0472; G0480; J0330; J0696; J1644; J2405; J2704; J3480

== ENCOUNTER 2018-01-03 21:05 | Emergency (ER) | payer MEDICAID ==
[2018-01-03] MEDS ORDERED: NS 1,000 ML IV ONE ×2 (21:43→21:51)
[2018-01-03 21:44] LABS: PLATELET COUNT 271 10^3/uL (150-400)
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
[2018-01-04 00:33] VITALS: BP 135/91
== END 2018-01-04 00:36 | disposition left against medical advice (07) ==
LOC: EDUNIT# → EDBD
DX: R09.02 Hypoxemia (principal); R00.0 Tachycardia, unspecified; F17.200 Nicotine dependence, unspecified, uncomplicated
CPT/HCPCS: 80305; G0480

== ENCOUNTER 2018-12-08 11:50 | Emergency (ER) | payer MEDICAID | END 2018-12-08 14:46 | disposition home or self-care (01) ==